=== PATIENT | female | born 1950 | race Caucasian/White ===

== ENCOUNTER 2018-05-10 07:21 | Emergency (ER) | payer BC, OTHER ==
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
--- NOTE | 2018-05-10 08:53 | RAD ---
Indication: LEFT femur pain and swelling post fall yesterday. Comparison: No relevant prior exams available on the [facility] PACS for comparison. Technique: AP and lateral views LEFT femur. Report: Negative for femur fracture or articular malalignment. Normal articular alignment at the hip and knee. Preserved joint spaces. Unremarkable soft tissue contours. IMPRESSION: #. Negative radiographic exam of the LEFT femur.
--- NOTE | 2018-05-10 08:55 | RAD ---
Indication: Right hand injury. 4 views of the right hand demonstrates no fracture. No other bone or joint abnormality is noted. IMPRESSION: NO FRACTURE OF THE RIGHT HAND IS NOTED.
[2018-05-10 09:28] VITALS: BP 123/75
== END 2018-05-10 09:55 | disposition home or self-care (01) ==
LOC: UCEAST 07:21
CPT/HCPCS: 99212; G0463

== ENCOUNTER 2019-05-13 07:48 | Day surgery (SDC) | payer MEDICARE, BC ==
[~2019-05-13 07:48] MED LIST: Buffered Lidocaine 1% SYRIN* 1 ML/SYRINGE INTRADERM ONE; Lactated Ringers 1000 ML Bag* 1,000 ML IV SCH
[2019-05-13] MEDS ORDERED: Lidocaine 1% INJ* 10 MG/ML 30 ML SDV ONE (08:11)
[2019-05-13] MEDS ORDERED: Midazolam* 1 MG/ML 2 ML VIAL (2 MG) ONE (08:32)
[2019-05-13] MEDS ORDERED: fentaNYL* 50 MCG/ML 2 ML VIAL (100 MCG VIAL) ONE (08:32)
[2019-05-13] MEDS ORDERED: Propofol* 10 MG/ML 20 ML BTL ONE (08:35)
[2019-05-13] MEDS ORDERED: Naloxone* 0.4 MG/ML 1 ML VIAL IV PRN (09:08)
[2019-05-13 09:36] VITALS: BP 107/60
--- NOTE | 2019-05-13 14:30 | OP ---
DATE OF OPERATION: 05/13/19 - [facility] DATE OF : 54 SURGEON: Kalani Baig MD PRE FABRICATOR: RICARDO Henry ANESTHESIA: Local MAC. PRE-OP DIAGNOSIS: Left long finger mass. POST-OP DIAGNOSIS: Left long finger mass. OPERATIVE PROCEDURE: Removal of left long finger mass. ESTIMATED BLOOD LOSS: Zero. TOURNIQUET TIME: About 10 minutes. INDICATIONS FOR PROCEDURE: Lacie is a 68-year-old female who has a very painful mass just distal to the DIP flexion crease of her left long finger, she presents for removal. DESCRIPTION OF PROCEDURE: The patient was brought to the operating room, was given a sedation anesthetic and a local infiltration of 10 cc of 1% plain lidocaine as a digital block to the middle finger. Skin of her left hand and forearm was prepped and draped in the usual sterile fashion. A Tourni-Cot was placed on the finger and left in place during the procedure. A diagonal incision was made center over the mass and we carefully dissected through the subcutaneous tissue. The mass appeared to be a ganglion, which was within the digital nerve. The nerve fibers were carefully dissected off of the mass which was then sent for pathology. The nerve was preserved. The wound was irrigated and the skin edges reapproximated with 4-0 nylon suture. The wound was dressed with Xeroform, 4x4, Webril, and Coban. The patient tolerated the procedure well and was brought to the recovery room in good condition. [id number]/[facility] #: [id number] MTDD
== END 2019-05-13 09:34 | disposition home or self-care (01) ==
LOC: OREAST 07:48
PROVIDERS: ATTEND Orthopaedic Surgery
DX: M67.442 Ganglion, left hand (principal)
CPT/HCPCS: 88304; J2250; J2704; J3010

== ENCOUNTER → 2019-05-16 | Day surgery (SDC) | payer MEDICARE, BC ==
[~2019-05-16] MED LIST changes: +Acetaminophen TAB* 325 MG ONE; +Acetaminophen TAB* 325 MG PO ONE; +Bupivacaine 0.5%* 50 ML MDV VIAL ONE; +Dexamethasone IV* 4 MG/ML 1 ML (4 MG) ONE; +DiMENhydriNATE IV* 50 MG/ML VIAL IV PUSH PRN; +DiMENhydriNATE IV* 50 MG/ML VIAL ONE; +Famotidine IV* 10 MG/ML 2 ML (20 mg) IV ONE; +Famotidine IV* 10 MG/ML 2 ML (20 mg) ONE; +Gabapentin CAP(*) 300 MG ONE; +Gabapentin CAP(*) 300 MG PO ONE; +HYDROcodone/ACETAMIN 5-325 MG* 1 TAB ONE; +HYDROcodone/ACETAMIN 5-325 MG* 1 TAB PO PRN; +Ketorolac INJ* 30 MG/ML 1 ML VIAL ONE; +Lidocaine 2% PF * 5 ML VIAL ONE; +Midazolam* 1 MG/ML 2 ML VIAL (2 MG) ONE; +Naloxone* 0.4 MG/ML 1 ML VIAL IV PRN; +Ondansetron INJ* 2 MG/ML VIAL IV PRN; +Ondansetron INJ* 2 MG/ML VIAL ONE; +Propofol* 10 MG/ML 20 ML BTL ONE; +ceFAZolin 2 GM in NS PREMIX(*) 2 GM/100 ML BAG IVPB ONE; +fentaNYL* 50 MCG/ML 2 ML VIAL (100 MCG VIAL) IV PRN; +fentaNYL* 50 MCG/ML 2 ML VIAL (100 MCG VIAL) ONE
[2019-05-16 11:22] VITALS: BP 93/67
--- NOTE | 2019-05-16 23:01 | OP ---
DATE OF OPERATION: 05/16/19 - [facility] DATE OF : 54 SURGEON: Tylor Gerardo MD. PHOTOCOMPOSING MACHINE OPERATOR: RICARDO Maldonado. PRE-OP DIAGNOSIS: Left hallux valgus deformity. POST-OP DIAGNOSIS: Left hallux valgus deformity. OPERATIVE PROCEDURE: Left modified Aggarwal procedure with proximal metatarsal osteotomy. DESCRIPTION OF PROCEDURE: The patient was taken to the operating room where a longitudinal short incision was made in the first and second dorsal webspace. Through this incision, we located the capsule overlying the sesamoid, which was incised longitudinally and reflected the adductor tendon away from the lateral border of the sesamoid. We then made a longitudinal medial incision over the medial eminence protecting the dorsal plantar flap. We made a transverse capsulotomy at the level of the MTP joint and carried this proximally over the dorsum of the metatarsal head. Through this incision, we removed the medial eminence with a microsagittal saw. Some of the redundant capsule was removed. We then extended the dorsal incision to the base of the first metatarsal with the extensor tendon protected and taken laterally. We made an osteotomy in the sagittal plane, proximal, medial, dorsal or distal lateral not penetrating the medial cortex. We removed a 3-mm wedge from the lateral portion of this with a second cut. We then closed this gap with a crab claw clamp and fixed the osteotomy with paired 3.0 mm partially threaded cannulated screws. The medial eminence capsulotomy was then repaired with 0 Vicryl sutures giving a straight alignment to the first MTP joint. We then closed all wounds with 3-0 Monocryl, 3-0 nylon and a compression dressing plaster splint applied. [id number]/[facility] #: [id number] [facility]
== END | disposition home or self-care (01) ==
LOC: OR 05:54
PROVIDERS: ATTEND Orthopaedic Surgery
DX: M20.12 Hallux valgus (acquired), left foot (principal); K58.9 Irritable bowel syndrome, unspecified
CPT/HCPCS: 76000; A9270-GY; C1713; J0690; J1100; J1240; J1885; J2250; J2405; J2704; J3010; J3490

== ENCOUNTER 2019-09-20 07:01 | Day surgery (SDC) | payer MEDICARE, BC ==
--- NOTE | 2019-09-14 16:44 | HP ---
PREOPERATIVE HISTORY AND PHYSICAL: DATE OF ADMISSION/SURGERY: 09/20/19 - [facility] DATE OF OFFICE VISIT/ENCOUNTER: 09/08/19 ATTENDING SURGEON: Kalani Baig MD * (DICTATED BY RICARDO POTTER) PROCEDURE: Dupuytren's excision, right hand. HISTORY OF PRESENT ILLNESS: This is a 69-year-old female who complains of a nodule on the palm of the right hand. She first noticed it this past fall after she had been on crutches from recent foot surgery. It is not especially painful, but it escalera a lot and it bothers her when she holds on to things. She is concerned because it has gotten bigger over the last month or so. She denies any associated numbness or tingling. She would like to have it removed surgically and she has consented to proceed with surgery. PAST MEDICAL HISTORY: Unremarkable. PAST SURGICAL HISTORY: 1. . 2. Tubal ligation. 3. Tonsillectomy. 4. Ganglion cyst excision from left middle finger. 5. Foot surgery, left foot. MEDICATIONS: 1. Ibuprofen p.r.n. 2. Vagifem 10 mcg. ALLERGIES: No known drug allergies. FAMILY MEDICAL HISTORY: Diabetes, heart disease, hypertension, stroke. SOCIAL HISTORY: The patient is retired. She worked at [employer] in the [employer]. She denies tobacco use and recreational drug use. She drinks alcohol on rare occasion. REVIEW OF SYSTEMS: Negative for general, cephalic, cardiovascular, respiratory , GI, , other musculoskeletal, integumentary, endocrine, neurologic, and hematologic symptoms. Infectious Disease: Negative for MRSA, hepatitis C, HIV. PHYSICAL EXAMINATION GENERAL: Well-developed, well-nourished 69-year-old female, in no acute distress. VITAL SIGNS: Height 5 feet 3 inches, weight 125 pounds. Pulse rate 72, blood pressure 118/76. HEENT: Normocephalic, atraumatic. Pupils are equal, round, and reactive to light and accommodation. Extraocular movements are intact. Throat is clear. NECK: Supple. No palpable lymph nodes. PULMONARY: Lungs are clear to auscultation bilaterally. No wheezes, rales, or rhonchi. CARDIOVASCULAR: Regular rate and rhythm. S1, S2. No murmurs, rubs, or gallops. No edema. ABDOMEN: Positive bowel sounds. Soft, nontender. NEUROLOGICAL: Alert and oriented x3. Cranial nerves II through XII are intact. Sensation is intact to light touch. MUSCULOSKELETAL: On exam of her right hand, she has a Dupuytren's nodule in the palm in line with the middle finger. It is tender to palpation. She has full flexion and extension of the fingers and normal wrist motion. Skin is intact. Neurovascular function is intact. IMPRESSION: Dupuytren's nodule, right hand. PLAN: The patient is scheduled to undergo a Dupuytren's excision, right hand with Dr. Baig on 09/20/19. She will return to the office 10 days postop for followup and suture removal. A prescription for [place] was e-scribed to the patient's pharmacy for postoperative pain management. RICARDO POTTER [id number]/[facility] #: [id number] MIGUEL
[~2019-09-20 07:01] MED LIST changes: -Acetaminophen TAB* 325 MG ONE; -Acetaminophen TAB* 325 MG PO ONE; -Bupivacaine 0.5%* 50 ML MDV VIAL ONE; +Dexamethasone IV* 4 MG/ML 1 ML (4 MG) IV SLOW PU ONE; -DiMENhydriNATE IV* 50 MG/ML VIAL IV PUSH PRN; -DiMENhydriNATE IV* 50 MG/ML VIAL ONE; -Gabapentin CAP(*) 300 MG ONE; -Gabapentin CAP(*) 300 MG PO ONE; -HYDROcodone/ACETAMIN 5-325 MG* 1 TAB ONE; -HYDROcodone/ACETAMIN 5-325 MG* 1 TAB PO PRN; -Ketorolac INJ* 30 MG/ML 1 ML VIAL ONE; -Lidocaine 2% PF * 5 ML VIAL ONE; -Midazolam* 1 MG/ML 2 ML VIAL (2 MG) ONE; -Naloxone* 0.4 MG/ML 1 ML VIAL IV PRN; -Ondansetron INJ* 2 MG/ML VIAL IV PRN; -Ondansetron INJ* 2 MG/ML VIAL ONE; -Propofol* 10 MG/ML 20 ML BTL ONE; -ceFAZolin 2 GM in NS PREMIX(*) 2 GM/100 ML BAG IVPB ONE; -fentaNYL* 50 MCG/ML 2 ML VIAL (100 MCG VIAL) IV PRN; -fentaNYL* 50 MCG/ML 2 ML VIAL (100 MCG VIAL) ONE
[2019-09-20] MEDS ORDERED: ceFAZolin 2 GM PREMIX in ORs 2 GM/50 ML BAG ONE (07:17)
[2019-09-20] MEDS ORDERED: Lidocaine 1% INJ* 10 MG/ML 30 ML SDV ONE (08:05)
[2019-09-20] MEDS ORDERED: fentaNYL* 50 MCG/ML 2 ML VIAL (100 MCG VIAL) ONE (08:46)
[2019-09-20] MEDS ORDERED: Midazolam* 1 MG/ML 5 ML VIAL (5 MG) ONE (08:46)
[2019-09-20] MEDS ORDERED: Lidocaine 2% PF * 5 ML VIAL ONE (08:50)
[2019-09-20] MEDS ORDERED: Propofol* 10 MG/ML 20 ML BTL ONE (08:50)
[2019-09-20] MEDS ORDERED: fentaNYL* 50 MCG/ML 2 ML VIAL (100 MCG VIAL) IV PRN (09:09)
[2019-09-20] MEDS ORDERED: oxyCODONE/Acetamin 5/325 MG* TAB PO PRN (09:09)
[2019-09-20] MEDS ORDERED: Ondansetron INJ* 2 MG/ML VIAL IV PRN (09:09)
[2019-09-20] MEDS ORDERED: Naloxone* 0.4 MG/ML 1 ML VIAL IV PRN (09:09)
[2019-09-20] MEDS ORDERED: HYDROcodone/ACETAMIN 5-325 MG* 1 TAB PO PRN (09:09)
[2019-09-20] MEDS ORDERED: Ketorolac INJ* 30 MG/ML 1 ML VIAL IV PRN (09:09)
[2019-09-20 09:52] VITALS: BP 114/55
--- NOTE | 2019-09-20 13:31 | OP ---
DATE OF OPERATION: 09/20/19 [facility] DATE OF : 54 SURGEON: Dr. Kalani Escobar ([place]). BUILDING CERTIFIER: RICARDO Henry. ANESTHESIA: Local MAC. PRE-OP DIAGNOSIS: Dupuytren nodule in the right hand. POST-OP DIAGNOSIS: Dupuytren nodule in the right hand. OPERATIVE PROCEDURE: Removal of Dupuytren nodule in the right hand. ESTIMATED BLOOD LOSS: Zero. TOURNIQUET TIME: About 15 minutes. INDICATION FOR PROCEDURE: Lacie is a 69-year-old female who has a painful nodule in the palm of her right hand, clinically it is a Dupuytren nodule. She presents for excision. DESCRIPTION OF PROCEDURE: The patient was brought to the operating room and was given a sedation anesthetic and a local infiltration of 10 cc of 1% plain lidocaine in the palm of the right hand. The skin of her right hand and forearm was prepped and draped in the usual sterile fashion. The hand and forearm were exsanguinated and tourniquet elevated to 250 mmHg. A Chevron incision was made centered over the palpable mass and we dissected the skin flaps up the Dupuytren nodule and removed in its entirety and sent for pathology. It was somewhat adherent to the the flexure tendon sheath of the middle finger. The wound was irrigated and the skin edges reapproximated with 4 -0 nylon suture. The wound was dressed with Xeroform, 4x4, Webril, and an Jun wrap. The patient tolerated the procedure well and was brought to the recovery room in good condition. [id number] #: [id number] [facility]ITALIvon
== END 2019-09-20 10:16 | disposition home or self-care (01) ==
LOC: OREAST 07:01
PROVIDERS: ATTEND Orthopaedic Surgery
DX: M72.0 Palmar fascial fibromatosis [Dupuytren] (principal)
CPT/HCPCS: 88304; J0690; J1100; J2250; J2704; J3010